=== PATIENT | male | born 1995 | race Two or more races ===

== ENCOUNTER 2022-06-29 13:03 | Inpatient (IN) | payer MEDICAID ==
[~2022-06-29] VITALS: Ht 170.2 cm; Wt 86.3 kg
[2022-06-29] MEDS ORDERED: HALOPERIDOL 5 MG TABLET PO PRN (13:45)
[2022-06-29] MEDS ORDERED: ZOLPIDEM TARTRATE 10 MG TABLET PO PRN (13:45)
[2022-06-29] MEDS: NICOTINE 21 MG/24 HOUR PATCH TD SCH (15:58)
[2022-06-29 16:05] VITALS: BP 121/68
[2022-06-29] MEDS ORDERED: PNEUMOCOCCAL VACCINE POLYVALENT 0.5 ML VIAL [PPSV23] IM. ONE (17:00)
[2022-06-29 17:54] VITALS: BP 121/68
[2022-06-29] MEDS ORDERED: INFLUENZA VIRUS VACCINE QVS 2022-23 (6MO+)/PF 60 MCG/0.5 ML SYRINGE IM. ONE (18:15)
[2022-06-29 23:31] VITALS: BP 128/64
[2022-06-30 08:18] LABS: BASOPHILS % (AUTO) 0.7 % (0.0-2.0); EOSINOPHILS % (AUTO) 9.1 % (1.0-6.0); HEMATOCRIT 43.6 % (41-53); HEMOGLOBIN 14.7 g/dL (13.5-17.5); LYMPHOCYTES % (AUTO) 36.1 % (22.0-44.0); MEAN CORPUSCULAR HEMOGLOBIN 30.5 pg (26.0-34.0); MEAN CORPUSCULAR HGB CONC 33.7 G/dL (31.0-37.0); MEAN CORPUSCULAR VOLUME 91 fL (80-100); MONOCYTES # (AUTO) 0.3 K/uL (0.1-1.0); MONOCYTES % (AUTO) 6.3 % (2.0-9.0); NEUTROPHILS # (AUTO) 2.6 K/uL (1.8-7.7); NEUTROPHILS % (AUTO) 47.8 % (40.0-70.0); PLATELET COUNT (AUTO) 158 K/uL (150-450); RED BLOOD CELL COUNT(AUTO) 4.81 MIL/uL (4.50-5.90); RED CELL DISTRIBUTION WIDTH 13.1 % (11.5-14.5)
[2022-06-30 08:20] VITALS: BP 129/72
[2022-06-30 08:21] VITALS: BP 129/72
[2022-06-30 08:40] LABS: APPEARANCE,URINE CLEAR (CLEAR); BILIRUBIN,URINE NEGATIVE (NEGATIVE); GLUCOSE, URINE (UA) NEGATIVE (NEGATIVE); KETONES,URINE NEGATIVE (NEGATIVE); LEUKOCYTE ESTERASE ,URINE NEGATIVE (NEGATIVE); NITRATE,URINE NEGATIVE (NEGATIVE); OCCULT BLOOD,URINE NEGATIVE (NEGATIVE); PROTEIN,URINE NEGATIVE (NEGATIVE); SPECIFIC GRAVITIY, URINE 1.011 (1.003-1.030); UROBILINOGEN,URINE <=1.0 mg/dL (<=1.0)
[2022-06-30] MEDS: NICOTINE 21 MG/24 HOUR PATCH TD SCH (08:41)
[2022-06-30 08:45] LABS: AMPHET/METH SCREEN,URINE NEGATIVE (NEGATIVE); BARBITURATE SCREEN, URINE NEGATIVE (NEGATIVE); BENZODIAZEPINES SCREEN,URINE NEGATIVE (NEGATIVE); CANNABINOID SCREEN,URINE POSITIVE (NEGATIVE); COCAINE SCREEN,URINE NEGATIVE (NEGATIVE); METHADONE SCREEN, URINE NEGATIVE (NEGATIVE); OPIATE SCREEN,URINE NEGATIVE (NEGATIVE)
[2022-06-30 08:47] LABS: PHENCYCLIDINE SCREEN,URINE NEGATIVE (NEGATIVE)
[2022-06-30 08:54] LABS: HEMOGLOBIN A1C 4.9 % (3.8-5.6)
[2022-06-30 09:14] LABS: ALANINE AMINOTRANSFERASE 31 U/L (12-78); ALKALINE PHOSPHATASE 79 U/L (46-116); ANION GAP 9 mmol/L (8-16); ASPARTATE AMINOTRANSFERASE 30 U/L (15-37); BILIRUBIN,TOTAL 0.6 mg/dL (0.1-1.0); CARBON DIOXIDE 28 mmol/L (22-29); CHLORIDE 101 mmol/L (98-107); CHOL/HDL RATIO 2.6 (4.2-7.3); CHOLESTEROL 129 mg/dL (131-200); CREATININE 0.79 mg/dL (0.60-1.30); FREE T4 (FREE THYROXINE) 1.01 ng/dL (0.76-1.46); GLUCOSE,RANDOM 114 mg/dL (70-110); HDL CHOLESTEROL 50 mg/dL (40-60); LDL CHOL (CALC.) 61 mg/dL (0-130); POTASSIUM 4.2 mmol/L (3.5-5.1); SODIUM SERUM 138 mmol/L (136-145); TOTAL PROTEIN, SERUM 7.2 g/dL (6.4-8.2); TRIGLYCERIDES 92 mg/dL (15-150); UREA NITROGEN, BLOOD 12 mg/dL (7-18)
[2022-06-30 09:17] LABS: GLOMERULAR FILTR. RATE CALC > 60 mL/min (>60)
[2022-06-30] MEDS: LORazepam 2 MG TABLET PO PRN (10:54)
[2022-06-30] MEDS: DIVALPROEX SODIUM 500 MG DR TABLET PO SCH (20:06)
[2022-06-30] MEDS: RisperiDONE 3 MG TABLET PO SCH (20:06)
[2022-06-30] MEDS ORDERED: MAG HYDROX/AL HYDROX/SIMETH ES 30 ML SUSPENSION UDCUP PO PRN (20:45)
[2022-06-30] MEDS ORDERED: ALBUTEROL SULFATE HFA 90 MCG/PUFF 8 GM INHALER IH PRN (20:45)
[2022-06-30] MEDS ORDERED: LOPERAMIDE HCL 2 MG CAPSULE PO PRN (20:45)
[2022-06-30] MEDS ORDERED: BENZOCAINE/MENTHOL LOZENGE PO PRN (20:45)
[2022-06-30] MEDS ORDERED: BACITRACIN 28 GM OINTMENT TP PRN (20:45)
[2022-06-30] MEDS ORDERED: DOCUSATE SODIUM 100 MG CAPSULE PO PRN (20:45)
[2022-06-30] MEDS ORDERED: MAGNESIUM HYDROXIDE SUSPENSION 30 ML UDCUP PO PRN (20:45)
[2022-06-30] MEDS ORDERED: CloNIDine HCL 0.1 MG TABLET PO PRN (20:45)
[2022-06-30] MEDS ORDERED: ONDANSETRON HCL 4 MG TABLET PO PRN (20:45)
[2022-06-30] MEDS ORDERED: IBUPROFEN 600 MG TABLET PO PRN (20:45)
[2022-06-30] MEDS ORDERED: ACETAMINOPHEN 325 MG TABLET PO PRN (20:45)
[2022-06-30] MEDS ORDERED: OMEPRAZOLE 20 MG CAPSULE PO PRN (20:45)
[2022-06-30] MEDS ORDERED: PETROLATUM,WHITE 28 GM JELLY TP PRN (20:45)
[2022-07-01] MEDS: NICOTINE 21 MG/24 HOUR PATCH TD SCH (08:04)
[2022-07-01] MEDS: RisperiDONE 3 MG TABLET PO SCH ×2 (08:05→20:29)
[2022-07-01] MEDS: DIVALPROEX SODIUM 500 MG DR TABLET PO SCH ×2 (08:05→20:29)
[2022-07-01 09:28] VITALS: BP 122/81
[2022-07-01] MEDS: LORazepam 2 MG TABLET PO PRN (19:06)
[2022-07-01 19:47] VITALS: BP 125/80
[2022-07-02 08:14] VITALS: BP 113/74
[2022-07-02] MEDS: NICOTINE 21 MG/24 HOUR PATCH TD SCH (08:36)
[2022-07-02] MEDS: DIVALPROEX SODIUM 500 MG DR TABLET PO SCH ×2 (08:36→21:15)
[2022-07-02] MEDS: RisperiDONE 3 MG TABLET PO SCH ×2 (08:36→21:15)
[2022-07-02 20:35] VITALS: BP 115/77
[2022-07-03] MEDS: DIVALPROEX SODIUM 500 MG DR TABLET PO SCH ×2 (08:12→22:15)
[2022-07-03] MEDS: RisperiDONE 3 MG TABLET PO SCH ×2 (08:12→22:15)
[2022-07-03] MEDS: NICOTINE 21 MG/24 HOUR PATCH TD SCH (08:12)
[2022-07-03 08:40] VITALS: BP 121/80
[2022-07-04 00:44] VITALS: BP 122/83
[2022-07-04] MEDS: RisperiDONE 3 MG TABLET PO SCH ×2 (08:23→20:17)
[2022-07-04] MEDS: DIVALPROEX SODIUM 500 MG DR TABLET PO SCH ×2 (08:23→20:17)
[2022-07-04] MEDS: NICOTINE 21 MG/24 HOUR PATCH TD SCH (08:24)
[2022-07-04 08:50] VITALS: BP 128/81
[2022-07-04 09:06] LABS: GLUCOMETER DEV NAME(LOC) POC.BV
[2022-07-04 20:58] VITALS: BP 119/76
[2022-07-05] MEDS: NICOTINE 21 MG/24 HOUR PATCH TD SCH (08:38)
[2022-07-05] MEDS: RisperiDONE 3 MG TABLET PO SCH ×2 (08:38→20:11)
[2022-07-05] MEDS: DIVALPROEX SODIUM 500 MG DR TABLET PO SCH ×2 (08:38→20:10)
[2022-07-05 09:05] VITALS: BP 109/57
[2022-07-05 20:31] VITALS: BP 109/65
[2022-07-06 09:08] VITALS: BP 116/65
[2022-07-06] MEDS: NICOTINE 21 MG/24 HOUR PATCH TD SCH (09:11)
[2022-07-06] MEDS: DIVALPROEX SODIUM 500 MG DR TABLET PO SCH ×2 (09:11→20:27)
[2022-07-06] MEDS: RisperiDONE 3 MG TABLET PO SCH ×2 (09:11→20:27)
[2022-07-06 23:30] VITALS: BP 110/64
[2022-07-07 08:13] VITALS: BP 110/63
[2022-07-07] MEDS: DIVALPROEX SODIUM 500 MG DR TABLET PO SCH ×2 (10:16→20:18)
[2022-07-07] MEDS: NICOTINE 21 MG/24 HOUR PATCH TD SCH (10:16)
[2022-07-07] MEDS: RisperiDONE 3 MG TABLET PO SCH ×2 (10:16→20:18)
[2022-07-07 21:21] VITALS: BP 116/67
[2022-07-08] MEDS: DIVALPROEX SODIUM 500 MG DR TABLET PO SCH ×2 (08:45→20:14)
[2022-07-08] MEDS: NICOTINE 21 MG/24 HOUR PATCH TD SCH (08:45)
[2022-07-08] MEDS: RisperiDONE 3 MG TABLET PO SCH ×2 (08:45→20:14)
[2022-07-08 09:03] VITALS: BP 106/57
[2022-07-08 20:05] VITALS: BP 123/74
[2022-07-09 08:13] VITALS: BP 114/66
[2022-07-09] MEDS: RisperiDONE 3 MG TABLET PO SCH ×2 (09:58→20:08)
[2022-07-09] MEDS: NICOTINE 21 MG/24 HOUR PATCH TD SCH (09:58)
[2022-07-09] MEDS: DIVALPROEX SODIUM 500 MG DR TABLET PO SCH ×2 (09:58→20:08)
[2022-07-09 20:21] VITALS: BP 112/68
[2022-07-10 08:18] VITALS: BP 113/56
[2022-07-10] MEDS ORDERED: PALIPERIDONE PALMITATE 234 MG/1.5 ML SYRINGE IM ONE (09:00)
[2022-07-10] MEDS: NICOTINE 21 MG/24 HOUR PATCH TD SCH (09:49)
[2022-07-10] MEDS: DIVALPROEX SODIUM 500 MG DR TABLET PO SCH ×2 (09:49→20:21)
[2022-07-10 20:04] VITALS: BP 111/66
[2022-07-11] MEDS: DIVALPROEX SODIUM 500 MG DR TABLET PO SCH ×2 (08:08→20:20)
[2022-07-11] MEDS: NICOTINE 21 MG/24 HOUR PATCH TD SCH (08:08)
[2022-07-11 08:43] VITALS: BP 109/78
[2022-07-11 17:31] LABS: GLUCOMETER DEV NAME(LOC) POC.BV
[2022-07-11 20:21] VITALS: BP 120/70
[2022-07-12 08:25] VITALS: BP 120/70
[2022-07-12] MEDS: DIVALPROEX SODIUM 500 MG DR TABLET PO SCH ×2 (08:30→20:00)
[2022-07-12] MEDS: NICOTINE 21 MG/24 HOUR PATCH TD SCH (08:31)
[2022-07-12 17:51] LABS: GLUCOMETER DEV NAME(LOC) POC.BV
[2022-07-13] MEDS ORDERED: DIVA-112 PO (00:01)
[2022-07-13] MEDS ORDERED: PALI234D IM (00:01)
[2022-07-13 01:42] VITALS: BP 114/79
[2022-07-13 08:08] VITALS: BP 72/17
[2022-07-13] MEDS: NICOTINE 21 MG/24 HOUR PATCH TD SCH (08:32)
[2022-07-13] MEDS: DIVALPROEX SODIUM 500 MG DR TABLET PO SCH (08:32)
[2022-08-06] MEDS ORDERED: PALIPERIDONE PALMITATE 234 MG/1.5 ML SYRINGE IM SCH (09:00)
== END 2022-07-13 11:00 | disposition home or self-care (01) | DRG 750 ==
LOC: B3A 14:13 → B2S 07-06 19:55
PROVIDERS: ADMIT Psychiatry & Neurology Psychiatry; ATTEND Psychiatry & Neurology Psychiatry
DX: F20.0 Paranoid schizophrenia (principal); F29 Unspecified psychosis not due to a substance or known physiological condition; Z20.822 Contact with and (suspected) exposure to COVID-19; F32.A Depression, unspecified; G47.00 Insomnia, unspecified; K59.00 Constipation, unspecified; F12.90 Cannabis use, unspecified, uncomplicated; Z72.0 Tobacco use
CPT/HCPCS: 80053; 80061; 80164; 80307; 81003; 83036; 84436; 84439; 84443; 85025; 86592; G0480